=== PATIENT | male | born 1985 | race Caucasian/White ===

== ENCOUNTER 2016-11-13 15:36 | Emergency (ER) | payer BC ==
[2016-11-13 15:56] VITALS: BMI 25.8
[2016-11-13] MEDS ORDERED: DIPHTH,PERTUSS(ACELL),TET 0.5 ML DISP.SYRIN IM ONE (16:47)
[2016-11-13] MEDS ORDERED: ACETAMINOPHEN 325 MG TABLET (FP) ONE (17:19)
[2016-11-13] MEDS ORDERED: ACETAMINOPHEN 500 MG TABLET (FP) PO ONE (17:25)
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
[2016-11-13 20:27] VITALS: BP 132/70; PULSE 87; TEMP 98.6
== END 2016-11-13 20:26 | disposition home or self-care (01) ==
LOC: JER 15:36
PROC: 3E0234Z Introduction of Serum, Toxoid and Vaccine into Muscle, Percutaneous Approach (ICD-10-PCS; principal; 2016-11-13)
DX: S02.2XXA Fracture of nasal bones, initial encounter for closed fracture (principal); S00.01XA Abrasion of scalp, initial encounter; S00.81XA Abrasion of other part of head, initial encounter; Y04.2XXA Assault by strike against or bumped into by another person, initial encounter; Y93.89 Activity, other specified; Y92.414 Local residential or business street as the place of occurrence of the external cause; Y07.9 Unspecified perpetrator of maltreatment and neglect
CPT/HCPCS: 70450-TC; 70486-TC; 71020-TC; 72125-TC; 90715; 99283-25

== ENCOUNTER 2018-02-19 21:01 | Emergency (ER) | payer BC ==
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
[2018-02-19 21:19] VITALS: BP 118/38; PULSE 85; BMI 23.3
[2018-02-19] MEDS ORDERED: ACETAMINOPHEN 325 MG TABLET (FP) PO ONE (21:41)
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
[2018-02-19] MEDS ORDERED: CEPHALEXIN MONOHYDRATE 500 MG CAPSULE (UD) PO ONE (22:11)
[2018-02-19] MEDS ORDERED: DIPHTH,PERTUSS(ACELL),TET 0.5 ML DISP.SYRIN IM ONE (22:11)
[2018-02-19] MEDS ORDERED: CEPHALEXIN MONOHYDRATE 500 MG CAPSULE (UD) ONE (23:03)
[2018-02-19] MEDS ORDERED: LIDOCAINE 1%/EPI 1:100000 (20 ML MULTI DOSE VIAL) ONE (23:14)
== END 2018-02-20 00:34 | disposition home or self-care (01) ==
LOC: JER 21:01
PROC: 0JQQ0ZZ Repair Right Foot Subcutaneous Tissue and Fascia, Open Approach (ICD-10-PCS; principal; 2018-02-19)
PROC: 3E0234Z Introduction of Serum, Toxoid and Vaccine into Muscle, Percutaneous Approach (ICD-10-PCS; 2018-02-19)
DX: S91.311A Laceration without foreign body, right foot, initial encounter (principal); V86.56XA Driver of dirt bike or motor/cross bike injured in nontraffic accident, initial encounter; Y93.89 Activity, other specified; Y92.488 Other paved roadways as the place of occurrence of the external cause; Y99.8 Other external cause status
CPT/HCPCS: 73590-TC-RT-FY; 73610-TC-RT-FY; 73630-TC-RT-FY; 90715; 99281-25

== ENCOUNTER 2018-05-25 12:28 | Emergency (ER) | payer BC ==
[2018-05-25 12:35] VITALS: BP 127/74; PULSE 97; TEMP 98.4; BMI 22.6
--- NOTE | 2018-05-25 13:02 | PDOC ---
Suture Removal/Wound Check HPI - History of Present Illness Chief Complaint: Suture/Staple Removal(Here) Stated Complaint: STAPLE/SUTURE REMOVAL Time Seen by Provider: 05/25/18 12:48 History Source: Yes: Patient Exam Limitations: Yes: Clinical Condition Treated at: [facility] ED Date of Last ED visit: 05/17/18 - Previous ED Treatment Type of procedure performed on last visit: Yes: Laceration Repair Tetanus Immunization: Yes: Up to Date - Onset of Previous Treatment Date of Occurence: 05/17/18 Select one - (for the option above): Weeks (1 week) Timing/Duration/Severity of Onset: reports: Prior to presentation Past History - Past Medical History Allergies/Adverse Reactions: Allergies Allergy/AdvReac Type Severity Reaction Status Date / Time No Known Allergies Allergy Verified 05/25/18 12:35 Home Medications: Ambulatory Orders NK [No Known Home Medication] 05/25/18 Asthma: Yes COPD: No DVT: No - Suicide/Smoking/Psychosocial Hx Smoking History: Current every day smoker Have you smoked in the past 12 months: No Number of Cigarettes Smoked Daily: 20 Information on smoking cessation initiated: No Hx Alcohol Use: No Drug/Substance Use Hx: No Substance Use Type: Alcohol Suture Removal/Wound Check PE - Physical Exam Laceration/Wound Check Symptoms: reports: None, Improved. denies: Pain, Fever, Chills, Redness, Discharge, Bleeding, Numbness, Weakness, Persistent, Worsening , Resolved, Other Comment Pain Intensity: 2 Current Severity Level: Mild Location of Laceration/Wound: left: Foot Pain Radiation: None *Review of Systems - Review of Systems Constitutional: No: Chills, Diaphoresis, Fever, Loss of Appetite, Malaise, Night Sweats, Weakness, Weight Stable, Unintentional Wgt. Loss, Unexplained wgt Loss, Other HEENTM: No: Eye Pain, Blurred Vision, Tearing, Recent change in vision, Double Vision, Cataracts, Ear Pain, Ocular Prothesis, Ear Discharge, Nose Pain, Nose Congestion, Tinnitus, Nose Bleeding, Hearing Loss, Throat Pain, Throat Swelling , Mouth Pain, Dental Problems, Difficulty Swallowing, Mouth Swelling, Other Respiratory: No: Cough, Orthopnea, Shortness of Breath, SOB with Exertion, SOB at Rest, Stridor, Wheezing, Productive cough, Hemoptysis, Other Cardiac (ROS): No: Chest Pain, Edema, Irregular Heart Rate, Lightheadedness, Palpitations, Syncope, Chest Tightness, Other ABD/GI: No: Abdominal Distended, Abd. Pain w/ defecation, Blood Streaked Bowels , Constipated, Diarrhea, Difficulty Swallowing, Nausea, Poor Appetite, Poor Fluid Intake, Rectal Bleeding, Vomiting, Indigestion, Abdominal cramping, Tarry Stools, Other Integumentary: Yes: Other (laceration to left foot with sutures) *Physical Exam - Vital Signs Last Vital Signs Temp Pulse Resp BP Pulse Ox 98.4 F 97 H 18 127/74 99 05/25/18 12:32 05/25/18 12:32 05/25/18 12:32 05/25/18 12:32 05/25/18 12:32 - Physical Exam Comments: 05/25/18 13:06 GENERAL: Well developed, well nourished. Awake and alert. No acute distress. HEENT: Normocephalic, atraumatic. PERRLA, EOMI. No conjunctival pallor. Sclera are non- icteric. Moist mucous membranes. Oropharynx is clear. NECK: Supple. Full ROM. No JVD. Carotid pulses 2+ and symmetric, without bruits. No thyromegaly. No lymphadenopathy. CARDIOVASCULAR: Regular rate and rhythm. No murmurs, rubs, or gallops. Distal pulses are 2+ and symmetric. PULMONARY: No evidence of respiratory distress. Lungs clear to auscultation bilaterally. No wheezing, rales or rhonchi. ABDOMINAL: Soft. Non-tender. Non-distended. No rebound or guarding. No organomegaly. Normoactive bowel sounds. MUSCULOSKELETAL Normal range of motion at all joints. No bony deformities or tenderness. No CVA tenderness. EXTREMITIES: No cyanosis. No clubbing. No edema. No calf tenderness. SKIN: Well-healing site centimeters stellate laceration with [address] No erythema to wound site. No wound dehiscence or evidence of wound infection. NEUROLOGICAL: Alert, awake, appropriate. Cranial nerves 2-12 intact. No deficits to light touch and temperature in face, upper extremities and lower extremities. No motor deficits in the in face, upper extremities and lower extremities. Normoreflexic in the upper and lower extremities. Normal speech. Toes are down- going bilaterally. Gait is normal without ataxia. PSYCHIATRIC: Cooperative. Good eye contact. Appropriate mood and affect. General Appearance: Yes: Nourished, Appropriately Dressed. No: Apparent Distress *DC/Admit/Observation/Transfer Diagnosis at time of Disposition: Laceration of foot Qualifiers: Encounter type: subsequent encounter Laterality: left Qualified Code(s): S91.312D - Laceration without foreign body, left foot, subsequent encounter Laceration of left knee Qualifiers: Encounter type: subsequent encounter Qualified Code(s): S81.012D - Laceration without foreign body, left knee, subsequent encounter - Discharge Dispostion Disposition: HOME Condition at time of disposition: Stable Decision to Admit order: No - Referrals - Patient Instructions Printed Discharge Instructions: DI for Suture Removal Additional Instructions: keep apply neosporin to wound twice/day until completely healed - Post Discharge Activity
== END 2018-05-25 13:03 | disposition home or self-care (01) ==
LOC: JERFT 12:28
DX: Z48.817 Encounter for surgical aftercare following surgery on the skin and subcutaneous tissue (principal); S91.312D Laceration without foreign body, left foot, subsequent encounter; S81.012D Laceration without foreign body, left knee, subsequent encounter
CPT/HCPCS: 99281-25

== ENCOUNTER 2024-05-24 15:55 | Emergency (ER) | payer BC ==
[2024-05-24 16:11] VITALS: BP 132/88; PULSE 88; RESP 18; TEMP 97.6; BMI 23.3
== END 2024-05-24 18:00 | disposition home or self-care (01) ==
LOC: JERFT 15:55
DX: S00.511A Abrasion of lip, initial encounter (principal); Y04.8XXA Assault by other bodily force, initial encounter
CPT/HCPCS: 99283-25